=== PATIENT | female | born 1955 | race Two or more races ===

== ENCOUNTER 2020-06-07 18:09 | Emergency (ER) | payer OTHER ==
[~2020-06-07] VITALS: Ht 172.7 cm; Wt 67.9 kg
--- NOTE | 2020-06-07 18:14 | NUR ---
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
--- NOTE | 2020-06-07 18:25 | NUR ---
PT AMBULATORY TO ROOM FROM [facility]. PT CHANGED INTO GOWN, MONITORS IN PLACE. AT
--- NOTE | 2020-06-07 18:39 | NUR ---
XRAY AT BS
[2020-06-07 18:45] LABS: BASOPHILS % (AUTO) 0 % (0-1); EOSINOPHILS % (AUTO) 0 % (1-7); LYMPHOCYTES % (AUTO) 17 % (22-44); MEAN CORPUSCULAR HEMOGLOBIN 30.2 pg (27.0-34.8); MEAN PLATELET VOLUME 8.4 fL (7.4-10.4); MONOCYTES % (AUTO) 11 % (2-9); NEUTROPHILS % (AUTO) 71 % (42-75); PLATELET COUNT 211 x10^3/uL (130-400); RED BLOOD COUNT 4.46 x10^6/uL (3.82-5.3); RED CELL DISTRIBUTION WIDTH 13.1 % (9.6-15.2)
--- NOTE | 2020-06-07 18:46 | NUR ---
REPORT GIVEN TO ANUJA KNOWLES
[2020-06-07 18:47] LABS: MD NO
[2020-06-07 18:56] LABS: ALBUMIN 3.1 g/dL (3.4-5.0); ANION GAP 5 mmol/L (5-15); CALCIUM 8.6 mg/dL (8.5-10.1); CHLORIDE 106 mmol/L (98-107)
[2020-06-07 19:08] LABS: ALANINE AMINOTRANSFERASE 24 U/L (12-78); ALKALINE PHOSPHATASE 76 U/L (45-117); BILIRUBIN,TOTAL 0.3 mg/dL (0.2-1.0); CREATININE 0.44 mg/dL (0.55-1.02); FREE T4 (FREE THYROXINE) 1.13 ng/dL (0.76-1.46); TROPONIN I < 0.015 ng/mL (0.000-0.045)
[2020-06-07 20:28] VITALS: BP 134/78
== END 2020-06-07 20:30 | disposition home or self-care (01) ==
LOC: ED 20:13
DX: B34.9 Viral infection, unspecified (principal); Z20.822 Contact with and (suspected) exposure to COVID-19; R00.0 Tachycardia, unspecified; R06.02 Shortness of breath
CPT/HCPCS: 36415; 71045; 80053; 84439; 84443; 84484; 85025; 93005; 99285; U0003

== ENCOUNTER 2020-09-16 22:11 | Emergency (ER) | payer OTHER ==
[~2020-09-16] VITALS: Ht 172.7 cm; Wt 69.4 kg
--- NOTE | 2020-09-16 23:18 | NUR ---
PT TO ROOM FROM LOBBY. NAD.
--- NOTE | 2020-09-16 23:25 | NUR ---
PT A&OX4, IN [facility], ON CR MONITOR, AND WAITING ON ORDERS.
[2020-09-16 23:40] LABS: BASOPHILS % (AUTO) 0 % (0-1); EOSINOPHILS % (AUTO) 0 % (1-7); LYMPHOCYTES % (AUTO) 27 % (22-44); MEAN CORPUSCULAR HEMOGLOBIN 30.5 pg (27.0-34.8); MEAN CORPUSCULAR HGB CONC 33.6 g/dL (32.4-35.8); MEAN PLATELET VOLUME 8.9 fL (7.4-10.4); MONOCYTES % (AUTO) 15 % (2-9); NEUTROPHILS % (AUTO) 57 % (42-75); PLATELET COUNT 191 x10^3/uL (130-400); RED BLOOD COUNT 4.67 x10^6/uL (3.82-5.3); RED CELL DISTRIBUTION WIDTH 13.6 % (9.6-15.2)
[2020-09-16 23:49] LABS: ALANINE AMINOTRANSFERASE 22 U/L (12-78); ALBUMIN 3.3 g/dL (3.4-5.0); ANION GAP 2 mmol/L (5-15); CALCIUM 9.3 mg/dL (8.5-10.1); CHLORIDE 108 mmol/L (98-107)
[2020-09-16 23:53] LABS: ALKALINE PHOSPHATASE 81 U/L (45-117); BILIRUBIN,TOTAL 0.2 mg/dL (0.2-1.0); TOTAL PROTEIN 7.5 g/dL (6.4-8.2); TROPONIN I < 0.015 ng/mL (0.000-0.045)
--- NOTE | 2020-09-16 23:54 | NUR ---
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 PT TOLERATED WELL.
--- NOTE | 2020-09-17 01:02 | NUR ---
REPORT FROM DOMENICO LICEA
--- NOTE | 2020-09-17 01:33 | NUR ---
POSTERIOR SPLINT APPLIED TO LEFT LEG. PT TOLERATED WELL. CRUTCHES AND CRUTCH TEACHING PROVIDED. PT ABLE TO DEMONSTRATE APPROPRIATE USE.
[2020-09-17 01:34] VITALS: BP 122/84
--- NOTE | 2020-09-17 02:41 | NUR ---
Patient given discharge instructions and they have confirmed that they understand the instructions. Patient ambulatory with crutch walking. NAD, all questions answered appropriately, denies additional needs at this time. No personal belongings left in room after discharge.
== END 2020-09-17 02:43 | disposition home or self-care (01) ==
LOC: ED 22:33
DX: S92.355A Nondisplaced fracture of fifth metatarsal bone, left foot, initial encounter for closed fracture (principal); R53.1 Weakness; M21.372 Foot drop, left foot; R07.89 Other chest pain; W01.0XXA Fall on same level from slipping, tripping and stumbling without subsequent striking against object, initial encounter; Y93.89 Activity, other specified; Y92.89 Other specified places as the place of occurrence of the external cause; Y99.8 Other external cause status
CPT/HCPCS: 29515; 36415; 71045; 80053; 84484; 85025; 93005; 99285